=== PATIENT | female | born 1990 | race Hispanic/Latino ===

== ENCOUNTER 2023-08-09 16:01 | Inpatient (IN) | payer OTHER, SELFPAY ==
[2023-08-09 16:23] VITALS: BP 121/80; BMI 29.7
[2023-08-09 18:10] LABS: % Basophils 0.2 % (0-2); % Eosinophils 0.9 % (0-6); % Immature Granulocytes 2.9 % (0-0.5); % Lymphocytes 20.3 % (20.5-51.1); % Neutrophils 68.7 % (42.2-75.2); Absolute Eosinophils 0.1 10^3/uL (0-0.7); Absolute Immature Granulocytes 0.5 10^3/uL (0-0.05); Absolute Lymphocytes 3.2 10^3/uL (1.2-3.4); Absolute Monocytes 1.1 10^3/uL (0.1-0.6); Absolute Neutrophils 10.9 10^3/uL (1.4-6.5); Hematocrit 36.6 % (37.0-47.0); Hemoglobin 12.7 g/dL (12.0-16.0); Mean Corp Hgb Conc. 34.7 g/dL (33.0-37.0); Mean Corpuscular Hgb 29.4 pg (27.0-31.0); Mean Corpuscular Volume 84.7 fL (81.0-99.0); Mean Platelet Volume 12.1 fL (7.4-10.4); Nucleated Red Blood Cells % 0 %; Platelet Count 324 10^3/uL (130-400); Red Blood Cell Count 4.32 10^6/uL (4.20-5.40); Red Cell Dist. Width 16.1 % (11.5-14.5); White Blood Cell Count 15.8 10^3/uL (4.8-10.8)
[2023-08-09] MEDS: CYTOTEC 50 MICROGRAM VAG (18:34)
[2023-08-10] MEDS: MORPHINE SULFATE 2 MG IV (00:55)
[2023-08-10] MEDS: SUBLIMAZE 100 MCG EPIDURAL (02:01)
[2023-08-10] MEDS: FENTANYL/BUPIVACAINE 100 EPIDURAL (02:10)
[2023-08-10] MEDS: LR 1000 IV (04:00)
[2023-08-10] MEDS: ANCEF 10 IV (05:19)
[2023-08-10] MEDS: TYLENOL 1000 MG PO (05:19)
[2023-08-10] MEDS: BICITRA 30 ML PO (05:19)
[2023-08-10 05:49] LABS: Cord ABG Comment CORD BLOOD
[2023-08-10 05:54] LABS: B.E. Cord ABG -3.9 mMOL/L; HCO3 Cord ABG 22.2 mmol/L; O2 Saturation % Cord ABG 34.2 %; PCO2 Cord ABG 43 mmHg; PO2 Cord ABG 19 mmHg; pH Cord ABG 7.32
[2023-08-10 05:57] LABS: B.E. Cord ABG -4.8 mMOL/L; HCO3 Cord ABG 22.1 mmol/L; O2 Saturation % Cord ABG 20.5 %; PCO2 Cord ABG 47 mmHg; PO2 Cord ABG 14 mmHg; pH Cord ABG 7.28
[2023-08-10] MEDS: TORADOL 15 MG IV ×3 (12:08→23:50)
[2023-08-11 05:22] LABS: Hematocrit 27.9 % (37.0-47.0); Hemoglobin 9.8 g/dL (12.0-16.0); Mean Corp Hgb Conc. 35.1 g/dL (33.0-37.0); Mean Corpuscular Hgb 30.4 pg (27.0-31.0); Mean Corpuscular Volume 86.6 fL (81.0-99.0); Platelet Count 249 10^3/uL (130-400); Red Blood Cell Count 3.22 10^6/uL (4.20-5.40); Red Cell Dist. Width 16.1 % (11.5-14.5)
[2023-08-11] MEDS: TORADOL 15 MG IV (05:54)
--- NOTE | 2023-08-11 11:06 | W.PN.ANS.POP ---
Anesthesia Post Operative
- Anesthesia Post Op Note
Vital Signs Stable-See Nursing Note: Yes
Airway Patent: Yes
Adequate Pain Control: Yes
Change in Mental Status: No
Current Postoperative Nausea & Vomiting: No
Anesthesia Complications: No
General Anesthetic Recall: No
Unplanned Admission: No
Post Op Hydration Adequate: Yes
[2023-08-11] MEDS: MOTRIN 600 MG PO ×2 (12:32→19:17)
[2023-08-11] MEDS: TYLENOL 650 MG PO (12:32)
[2023-08-11] MEDS: FEOSOL 325 MG PO (18:02)
[2023-08-11] MEDS: PRENATAL PLUS 1 TABLET PO (18:02)
[2023-08-11] MEDS: POLYSPORIN/DOUBLE ANTIBIOTIC 1 APPLIC TOPICAL (20:34)
[2023-08-11] MEDS: TUMS 2 TABLET PO (20:54)
[2023-08-12] MEDS: TYLENOL 650 MG PO ×4 (00:30→23:56)
[2023-08-12] MEDS: MOTRIN 600 MG PO ×4 (05:01→23:57)
[2023-08-12] MEDS: POLYSPORIN/DOUBLE ANTIBIOTIC 1 APPLIC TOPICAL ×2 (07:42→19:53)
[2023-08-12] MEDS: FEOSOL 325 MG PO (07:42)
[2023-08-12] MEDS: PRENATAL PLUS 1 TABLET PO (07:43)
[2023-08-12] MEDS: SENOKOT-S 1 TABLET PO (08:07)
[2023-08-12] MEDS: TUMS 2 TABLET PO (18:20)
[2023-08-13] MEDS: TYLENOL 650 MG PO ×2 (05:55→11:58)
[2023-08-13] MEDS: MOTRIN 600 MG PO ×2 (05:55→11:58)
[2023-08-13] MEDS: PRENATAL PLUS 1 TABLET PO (08:11)
[2023-08-13] MEDS: SENOKOT-S 1 TABLET PO (08:11)
[2023-08-13] MEDS: POLYSPORIN/DOUBLE ANTIBIOTIC 1 APPLIC TOPICAL (08:11)
[2023-08-13] MEDS: FEOSOL 325 MG PO (08:11)
--- NOTE | 2023-08-13 13:12 | CM ---
CM met with first time parents at bedside
Confirmed address, parents live in home
Baby's name is Nathan
Mom reporting she plans to breast feed infant and has a breast pump
Mom reports she has all supplies for including car seat
Mom plans to bring to [facility] for peds and will schedule appt
CM will be available for any d/c needs
[2023-08-13 16:30] LABS: Syphilis/T. pallidum Ab Reflex Negative (Negative)
--- NOTE | 2023-09-04 21:54 | W.DS.TRANS ---
DC Summary - [employer]
-
Discharge Instructions:
Discharge Diagnosis/Procedures delivered by csection, nonreassuring
heart rate
Diet Regular
Activity No strenuous activity
Driving Restrictions No driving for 2 weeks
Bathing Restrictions OK to Shower
Instructions:
Stand-Alone Forms: LDRP Delivery
Changes to Home Medications: No
Discharge Medications:
DC Medications w/original date entered in [employer]
cyanocobalamin (vitamin B-12) 1,000 mcg sublingual tablet 1,000 mcg sublingual DAILY Supplement 08/09/23
fluticasone propionate 50 mcg/actuation nasal spray,suspension 2 spray intranasal DAILY Allergies 08/09/23
prenat.vits,сергей,jap-qpde-zvryp 1 tab PO 1XD Supplement 08/09/23
acetaminophen 325 mg tablet 650 mg PO Q4HPRN PRN mild pain #0 tabs 08/12/23
bacitracin zinc 500 unit-polymyxin B 10,000 unit/gram topical ointment (Double Antibiotic (bacitrcn zn)) 1 applic topical BID Skin issues #0 grams 08/12/23
ferrous sulfate 325 mg (65 mg iron) tablet (FeroSul) 325 mg PO DAILY #1 tab 08/12/23
ibuprofen 600 mg tablet 600 mg PO Q6HPRN PRN cramps #0 tabs 08/12/23
vitamin with calcium no.72-iron 27 mg-folic acid 1 mg tablet (WesTab Plus) 1 tab PO DAILY #0 tabs 08/12/23
Home Medication Changes
Pending Results: No
== END 2023-08-13 15:40 | disposition home or self-care (01) | DRG 788 ==
LOC: LDRP 16:01
PROVIDERS: ADMITTING PHYSICIAN Obstetrics & Gynecology
PROC: 10907ZC Drainage of Amniotic Fluid, Therapeutic from Products of Conception, Via Natural or Artificial Opening (ICD-10-PCS; 2023-08-10)
PROC: 6A550ZT Pheresis of Cord Blood Stem Cells, Single (ICD-10-PCS; 2023-08-10)
PROC: 10D00Z1 Extraction of Products of Conception, Low, Open Approach (ICD-10-PCS; 2023-08-10)
PROC: 3E0P7VZ Introduction of Hormone into Female Reproductive, Via Natural or Artificial Opening (ICD-10-PCS; 2023-08-10)
DX: O41.03X0 Oligohydramnios, third trimester, not applicable or unspecified (principal); O76 Abnormality in fetal heart rate and rhythm complicating labor and delivery; Z3A.40 40 weeks gestation of pregnancy; Z37.0 Single live birth; O48.0 Post-term pregnancy; O77.0 Labor and delivery complicated by meconium in amniotic fluid; O69.2XX0 Labor and delivery complicated by other cord entanglement, with compression, not applicable or unspecified; O99.344 Other mental disorders complicating childbirth; F41.9 Anxiety disorder, unspecified; J45.909 Unspecified asthma, uncomplicated; O99.52 Diseases of the respiratory system complicating childbirth; K58.9 Irritable bowel syndrome, unspecified; O90.81 Anemia of the puerperium; D64.9 Anemia, unspecified
CPT/HCPCS: 88307; 36415; 59025; 76815; 82803; 85025; 85027; 86780; 86850; 86900; 86901